=== PATIENT | female | born 1990 | race Two or more races ===

== ENCOUNTER → 2017-10-15 | Outpatient (CLI) | payer SELFPAY ==
--- NOTE | 2017-10-15 17:15 | RADIOLOGY REPORT (SQ) ---
EXAM DESCRIPTION: U/S OB 14+ TRNABD 1GES W/O DOP COMPLETED DATE/TIME: 10/15/2017 3:59 pm REASON FOR STUDY: ENCTR FOR SUPERVISION OF OTHER NORMAL , 3RD TRIMESTER (Z34.83) Z34.83 EN COUNTER FOR SUPRVSN OF NORMAL , THIRD TRIM COMPARISON: None. TECHNIQUE: Static and Dynamic grayscale imaging performed of gravid uterus using transabdominal appr oach. Additional selected color Doppler and spectral images recorded. All stored on PACS. LIMITATIONS: None. FINDINGS: EGA: 30 weks 0 days TOMASA: 12/24/2017 EFW: Not included on this exam PERCENTILE: Not included on this exam LORETTA: Not included on this exam PLACENTA: Anterior PRESENTATION: Cephalic. ANATOMY: HEART RATE: 162 beats per minute. FOUR CHAMBER HEART: Visualized. THREE VESSEL CORD: Yes. CORD INSERTION: Visualized. KIDNEYS AND BLADDER: The kidneys are visualized. Appear normal. The bladder is not visualiz ed STOMACH: Visualized. Appears normal. SPINE: Normal as visualized. BRAIN AND LATERAL VENTRICLES: Visualized. Appear normal. OTHER: No other significant finding. MATERNAL ADNEXA: Maternal ovaries not visualized. CERVICAL LENGTH: Not included. OTHER: No other significant finding. IMPRESSION: 1. LIVING INTRAUTERINE . 2. ESTIMATED GESTATIONAL AGE: 30 weeks 0 days. 3. Please see above for anatomy. Trimester of : Second/third trimester OB ultrasound TECHNICAL DOCUMENTATION: JOB ID: [id number] [employer]- All Rights Reserved
== END ==
LOC: RAD 14:06
PROVIDERS: ATTEND Nurse Practitioner Women's Health
DX: Z34.83 Encounter for supervision of other normal pregnancy, third trimester (principal)
CPT/HCPCS: 76805

== ENCOUNTER 2017-12-19 05:05 | Inpatient (IN) | payer MEDICAID ==
[2017-12-18 12:45] LABS: ABSOLUTE EOSINOPHILS # (AUTO) 0.1 10^3/uL (0.0-0.6); ABSOLUTE LYMPHOCYTES (AUTO) 1.6 10^3/uL (0.5-4.7); ABSOLUTE MONOCYTES (AUTO) 0.4 10^3/uL (0.1-1.4); ABSOLUTE NEUT (AUTO) 4.9 10^3/uL (1.7-8.2); BASOPHILS % (AUTO) 0.2 % (0-2); EOSINOPHILS % (AUTO) 1.5 % (0-6); HEMATOCRIT 33.5 % (36.0-47.0); HEMOGLOBIN 11.3 g/dL (12.0-15.5); LYMPHOCYTES % (AUTO) 22.9 % (13-45); MEAN CORPUSCULAR HEMOGLOBIN 29.6 pg (27.0-33.4); MEAN CORPUSCULAR HGB CONC 33.6 g/dL (32.0-36.0); MEAN CORPUSCULAR VOLUME 88 fl (80-97); MONOCYTES % (AUTO) 5.6 % (3-13); PLATELET COUNT 225 10^3/uL (150-450); RED CELL DISTRIBUTION WIDTH 13.8 % (11.5-14.0); SEGMENTED NEUTROPHILS % (AUTO) 69.8 % (42-78); TOTAL CELLS COUNTED % (AUTO) 100 %
[2017-12-18 12:53] LABS: APPEARANCE,URINE CLOUDY; BILIRUBIN,URINE NEGATIVE (NEGATIVE); COLOR,URINE YELLOW; GLUCOSE, URINE NEGATIVE (NEGATIVE); KETONES,URINE NEGATIVE (NEGATIVE); LEUKOCYTE ESTERASE,URINE MODERATE (NEGATIVE); NITRITE,URINE NEGATIVE (NEGATIVE); PROTEIN,URINE NEGATIVE (NEGATIVE); URINE SPECIFIC GRAVITY 1.024; UROBILINOGEN,URINE NEGATIVE mg/dL (<2.0)
[2017-12-18 13:15] LABS: URINE AMPHETAMINES SCREEN NEGATIVE; URINE BARBITURATES SCREEN NEGATIVE; URINE BENZODIAZEPINES SCREEN NEGATIVE; URINE COCAINE SCREEN NEGATIVE; URINE MARIJUANA (THC) SCREEN NEGATIVE; URINE METHADONE SCREEN NEGATIVE; URINE PHENCYCLIDINE SCREEN NEGATIVE
[~2017-12-19 05:05] MED LIST: CEFAZOLIN 1 GM/D5W RTU 1 GM/50 ML RTUPB IV PRN; LACTATED RINGERS 1000 ML IV PRN; LIDOCAINE 0.5% INJ-PF (5 MG/ML) 50 ML SDV SUBCUT PRN; RINGERS SOLUTION,LACTATED 1,000 ML IV PRN
[2017-12-19] MEDS ORDERED: MIDAZOLAM 2 MG/2 ML INJ ONE (07:25)
[2017-12-19] MEDS ORDERED: EPHEDRINE SULFATE INJ 50 MG/1 ML AMPULE ONE (07:25)
[2017-12-19] MEDS ORDERED: OXYTOCIN 10 UNIT/ML VIAL ONE (07:25)
[2017-12-19] MEDS ORDERED: ACETAMINOPHEN 100 ML IV ONE ×2 (07:26→09:19)
[2017-12-19] MEDS ORDERED: PROPOFOL INJ 200 MG/20 ML VIAL IV ONE (07:41)
[2017-12-19] MEDS ORDERED: TETRACAINE HCL/PF 20MG/2ML AMPULE (SPINAL) ONE (07:41)
[2017-12-19] MEDS ORDERED: OXYCODONE-ACETAMINOPHEN 5-325 MG TABLET PO PRN ×3 (08:08→10:00)
[2017-12-19] MEDS ORDERED: FENTANYL CITRATE INJ/PF 100 MCG/2 ML AMPUL IV PRN ×3 (08:08)
[2017-12-19] MEDS ORDERED: PROMETHAZINE HCL INJ 25 MG/1 ML VIAL IV PRN ×2 (08:08)
[2017-12-19] MEDS ORDERED: MEPERIDINE HCL/PF INJ 25 MG/1 ML DISP.SYRIN IV PRN (08:08)
[2017-12-19] MEDS ORDERED: DIPHENHYDRAMINE HCL 50 MG/ML VIAL IV PRN (08:08)
[2017-12-19] MEDS ORDERED: KETOROLAC TROMETHAMINE INJ/PF 30 MG/1 ML SDV ONE (09:31)
[2017-12-19] MEDS ORDERED: OXYTOCIN/NORMAL SALINE 20 UNIT/1,000 ML RTUINJ INJ PRN (09:38)
[2017-12-19] MEDS ORDERED: HYDROMORPHONE HCL INJ/PF 2 MG/ML AMPULE ONE (09:50)
[2017-12-19] MEDS ORDERED: HYDROMORPHONE HCL INJ/PF 2 MG/ML AMPULE IV PRN (10:00)
[2017-12-19] MEDS ORDERED: SIMETHICONE 80 MG TAB.CHEW PO PRN (10:00)
[2017-12-19] MEDS ORDERED: ACETAMINOPHEN 325 MG TABLET PO PRN (10:00)
[2017-12-19] MEDS ORDERED: DIPH/PERTUSS(ACELL)/TETANUS VAC/PF 0.5 ML SYR (>=10YO) IM PRN (10:00)
[2017-12-19] MEDS ORDERED: PROMETHAZINE HCL INJ 25 MG/1 ML VIAL IM PRN (10:00)
[2017-12-19] MEDS ORDERED: MEASLES,MUMPS&RUBELLA VACC/PF 0.5 ML VIAL SUBCUT PRN (10:00)
[2017-12-19] MEDS ORDERED: RINGERS SOLUTION,LACTATED 1,000 ML IV SCH (10:00)
--- NOTE | 2017-12-19 10:04 | PDOC PROGRESS REPORT ---
Subjective-OB Progress Note for:: 12/19/17 Subjective: pt bonding well with - no concerns ambulating well anxious to go home [id number] mild lochia precautions given d/c home rtc 4 weeks Physical Exam (OB) Vital Signs: Temp Pulse Resp BP Pulse Ox 98.3 F 90 16 122/90 H 99 12/19/17 05:48 12/19/17 05:48 12/19/17 05:48 12/19/17 05:48 12/19/17 05:48 Intake & Output 12/18/17 12/19/17 12/20/17 06:59 06:59 06:59 Weight 97.7 kg Objective-Diagnostic Laboratory: 12/18/17 12:11 12/18/17 12/18/17 12/18/17 12:05 12:11 12:11 WBC 7.0 RBC 3.80 Hgb 11.3 L Hct 33.5 L MCV 88 MCH 29.6 MCHC 33.6 RDW 13.8 Plt Count 225 Seg Neutrophils % 69.8 Lymphocytes % 22.9 Monocytes % 5.6 Eosinophils % 1.5 Basophils % 0.2 Absolute Neutrophils 4.9 Absolute Lymphocytes 1.6 Absolute Monocytes 0.4 Absolute Eosinophils 0.1 Absolute Basophils 0.0 Urine Color YELLOW Urine Appearance CLOUDY Urine pH 5.0 Ur Specific [place] 1.024 Urine Protein NEGATIVE Urine Glucose (UA) NEGATIVE Urine Ketones NEGATIVE Urine Blood SMALL H Urine Nitrite NEGATIVE Ur Leukocyte Esterase MODERATE H Urine WBC (Auto) 11 Urine RBC (Auto) 5 Blood Type A POSITIVE Antibody Screen NEGATIVE
--- NOTE | 2017-12-19 10:14 | PDOC DISCHARGE SUMMARY ---
Final Diagnosis Discharge Date: 12/19/17 - Final Diagnosis (1) Delivery by elective caesarean section Is this a current diagnosis for this admission?: Yes Discharge Data - Discharge Medication Prescriptions: Ibuprofen [Motrin 800 mg Tablet] 800 mg PO Q8 #90 tablet Home Medications: Ibuprofen [Motrin 800 mg Tablet] 800 mg PO Q8 #90 tablet 12/19/17 Reason(s) for Admission: Onset of Labor Intrapartum Procedure(s): Spontaneous Vaginal Delivery Laceration-Degree: 1st - Diagnosis Test Laboratory: Temp Pulse Resp BP Pulse Ox 98.3 F 90 16 122/90 H 99 12/19/17 05:48 12/19/17 05:48 12/19/17 05:48 12/19/17 05:48 12/19/17 05:48 12/18/17 12/18/17 12:05 12:11 RBC 3.80 Hgb 11.3 L Hct 33.5 L Urine Opiates Screen NEGATIVE - Discharge information/Instructions Discharge Activity: Activity As Tolerated Discharge Diet: Regular Disposition: HOME, SELF-CARE Follow up with: [facility] in: 4
[2017-12-19] MEDS ORDERED: ONDANSETRON HCL INJ/PF 4 MG/2 ML SDV ONE (10:51)
[2017-12-19] MEDS: PRENATAL VITAMIN W DHA CAPSULE PO SCH (13:12)
[2017-12-19] MEDS: DOCUSATE SODIUM 100 MG CAPSULE PO SCH ×2 (13:12→18:21)
[2017-12-19] MEDS: OXYCODONE-ACETAMINOPHEN 5-325 MG TABLET PO PRN ×2 (14:42→20:52)
[2017-12-19] MEDS: ACETAMINOPHEN 100 ML IV SCH (17:39)
[2017-12-19] MEDS: KETOROLAC TROMETHAMINE INJ/PF 30 MG/1 ML SDV IV SCH (18:22)
[2017-12-20] MEDS: ACETAMINOPHEN 100 ML IV SCH (02:26)
[2017-12-20] MEDS: KETOROLAC TROMETHAMINE INJ/PF 30 MG/1 ML SDV IV SCH ×2 (03:00→10:14)
[2017-12-20 06:52] LABS: HEMATOCRIT 27.7 % (36.0-47.0); HEMOGLOBIN 9.5 g/dL (12.0-15.5); RED BLOOD COUNT 3.11 10^6/uL (3.72-5.28); WHITE BLOOD COUNT 9.1 10^3/uL (4.0-10.5)
[2017-12-20 06:53] LABS: MEAN CORPUSCULAR HEMOGLOBIN 30.4 pg (27.0-33.4); MEAN CORPUSCULAR HGB CONC 34.3 g/dL (32.0-36.0); MEAN CORPUSCULAR VOLUME 89 fl (80-97); PLATELET COUNT 177 10^3/uL (150-450); RED CELL DISTRIBUTION WIDTH 14.2 % (11.5-14.0)
[2017-12-20] MEDS: DOCUSATE SODIUM 100 MG CAPSULE PO SCH ×2 (10:14→17:49)
[2017-12-20] MEDS: PRENATAL VITAMIN W DHA CAPSULE PO SCH (10:14)
[2017-12-20] MEDS: OXYCODONE-ACETAMINOPHEN 5-325 MG TABLET PO PRN ×2 (10:15→14:47)
--- NOTE | 2017-12-20 12:06 | PDOC PROGRESS REPORT ---
Subjective-OB Progress Note for:: 12/20/17 Subjective: Day 1 s/p r c/s with btl doing well, lochia stable, pain well controlled, voiding without difficulty, lochia is stable, tolerating diet, passing gas, ambulating well bonding with baby well. Physical Exam (OB) Vital Signs: Temp Pulse Resp BP Pulse Ox 98.3 F 95 16 121/76 100 12/20/17 07:43 12/20/17 07:43 12/20/17 07:43 12/20/17 07:43 12/20/17 07:43 Intake & Output 12/19/17 12/20/17 12/21/17 06:59 06:59 06:59 Intake Total 850 Output Total 1100 Balance -250 Weight 97.7 kg - PIH/Pre-Eclampsia DTR's: 1 + Clonus: Negative Headache: Absent Epigastric Pain: No Visual Changes: No - Dressing Removed: No - opsite Incision: Dressing Closure Type: Op Site - Lochia Lochia Amount: Small 10-25 ml Lochia Color: Rubra/Red - Abdomen Description: Soft, Round Hernia Present: No Fundal Description: Firm, Midline Fundal Height: u/u - u/2 Objective-Diagnostic Laboratory: 12/20/17 06:32 12/20/17 06:32 WBC 9.1 RBC 3.11 L Hgb 9.5 L Hct 27.7 L MCV 89 MCH 30.4 MCHC 34.3 RDW 14.2 H Plt Count 177 Assessment and Plan(PN) - Assessment and Plan (1) Anemia due to acute blood loss Is this a current diagnosis for this admission?: Yes Plan: ferrous sulfate increase dietary iron (2) Delivery by elective caesarean section Is this a current diagnosis for this admission?: Yes Plan: routine pp care. - Time Spent with Patient Time with patient: Less than 15 minutes Critical Time spent with patient: Less than 15 minutes Medications reviewed and adjusted accordingly: Yes - Disposition Anticipated Discharge: Home Within: within 24 hours
[2017-12-20] MEDS: IBUPROFEN 800 MG TABLET PO SCH ×2 (14:46→21:51)
[2017-12-21] MEDS: IBUPROFEN 800 MG TABLET PO SCH ×2 (05:24→11:24)
--- NOTE | 2017-12-21 09:14 | PDOC PROGRESS REPORT ---
Subjective-OB Progress Note for:: 12/21/17 Subjective: Doing well, ready to go home, pain under control, breast/bottle feeding, voiding , ambulating, passing gas Physical Exam (OB) Vital Signs: Temp Pulse Resp BP Pulse Ox 98.6 F 95 16 122/59 L 99 12/21/17 07:52 12/21/17 07:52 12/21/17 07:52 12/21/17 07:52 12/21/17 07:52 Intake & Output 12/20/17 12/21/17 12/22/17 06:59 06:59 06:59 Intake Total 850 800 Output Total 1100 Balance -250 800 - PIH/Pre-Eclampsia DTR's: 1 + Clonus: Negative Headache: Absent Epigastric Pain: No Visual Changes: No - Dressing Removed: Yes - replaced Incision: Dressing Closure Type: Sutures - Lochia Lochia Amount: Scant < 10 ml Lochia Color: Rubra/Red - Abdomen Description: Tender, Soft, Round Hernia Present: No Fundal Description: Firm, Midline Fundal Height: u/u - u/2 Objective-Diagnostic Laboratory: 12/20/17 06:32 Assessment and Plan(PN) - Assessment and Plan (1) Delivery by elective caesarean section Is this a current diagnosis for this admission?: Yes (2) Anemia due to acute blood loss Is this a current diagnosis for this admission?: Yes - Time Spent with Patient Time with patient: Less than 15 minutes Medications reviewed and adjusted accordingly: Yes - Disposition Anticipated Discharge: Home Within: Other - home today
--- NOTE | 2017-12-21 09:20 | PDOC DISCHARGE SUMMARY ---
Final Diagnosis Discharge Date: 12/21/17 - Final Diagnosis (1) Delivery by elective caesarean section Is this a current diagnosis for this admission?: Yes (2) Anemia due to acute blood loss Is this a current diagnosis for this admission?: Yes Discharge Data - Discharge Medication Prescriptions: Oxycodone HCl/Acetaminophen [Percocet 5-325 mg Tablet] 1 tab PO Q4HP PRN #30 tablet PRN Reason: Ibuprofen [Motrin 800 mg Tablet] 800 mg PO Q8 #90 tablet Home Medications: Ibuprofen [Motrin 800 mg Tablet] 800 mg PO Q8 #90 tablet 12/19/17 Oxycodone HCl/Acetaminophen [Percocet 5-325 mg Tablet] 1 tab PO Q4HP PRN #30 tablet 12/21/17 Gestational Age: 39 Reason(s) for Admission: Ceasarean Section-Repeat Procedures: NST, Ultrasound Intrapartum Procedure(s): : Low Cervical, Transverse, Tubal Ligation - Diagnosis Test Laboratory: Temp Pulse Resp BP Pulse Ox 98.6 F 95 16 122/59 L 99 12/21/17 07:52 12/21/17 07:52 12/21/17 07:52 12/21/17 07:52 12/21/17 07:52 12/18/17 12/18/17 12/20/17 12:05 12:11 06:32 RBC 3.80 3.11 L Hgb 11.3 L 9.5 L Hct 33.5 L 27.7 L Urine Opiates Screen NEGATIVE - Discharge information/Instructions Discharge Activity: Activity As Tolerated, No Lifting Over 10 Pounds, No Lifting /Push/Pulling, Pelvic Rest Discharge Diet: As Tolerated, Regular Disposition: HOME, SELF-CARE Follow up with: [facility] in: 1, 4, Weeks - to clinic in 1 week
[2017-12-21] MEDS: PRENATAL VITAMIN W DHA CAPSULE PO SCH (11:25)
[2017-12-21] MEDS: DOCUSATE SODIUM 100 MG CAPSULE PO SCH (11:25)
[2017-12-21 12:16] VITALS: BP 127/71
--- NOTE | 2018-01-15 14:21 | PDOC DELIVERY SUMMARY ---
Delivery Summary - Maternal Hx : III Hx # Term Pregnancies: 2 TOMASA: 12/25/17 Gestational Age: 39 Ruptured Membranes: AROM Time of Rupture: 08:13 Fluids: Clear - Delivery Presentation: Vertex Heart Rate Monitoring: Done Pre-Operatively Support Person Present: Yes - LISA() Location: LD : Repeat Placenta: Within Normal Limits Delivery of Placenta Date: 12/19/17 Delivery of Placenta Time: 08:14 - Medications Type of Anesthesia:: Spinal - Infant Assess and Care Baby 1 Male Delivery of Infant Date: 12/19/17 Delivery of Infant Time: 08:13 at 1 minute: 9 at 5 minutes: 9 Preprinted Number On Band: [id number] Infant Skin to Skin: No To Nursery At: 08:19 Mode of Transport: Bassinet Delivery Weight: 3,115 Infant Delivery Length: 19.5 in - Delivery Personnel Mechanical Shovel Operator: RAMILA LORENZ RN: UGO BATEMAN RN: ANGEL RAHMAN MD: JAYANT ZURITA
--- NOTE | 2018-01-15 14:59 | OPERATIVE REPORT E ---
Operative Report NAME: CANDIE TAYLOR : 1990 AGE: 27Y DATE OF SURGERY: 12/19/2017 ROOM: 222 PREOPERATIVE DIAGNOSES: 1. IUP at 39 weeks and 0 days. 2. Previous . 3. Undesired fertility. POSTOPERATIVE DIAGNOSES: 1. IUP at 39 weeks and 0 days. 2. Previous . 3. Undesired fertility. OPERATION: Low transverse hysterotomy section, repeat with a Amonate tubal ligation. SURGEON: JAYANT ZURITA M.D. ANESTHESIA: Dr. Woods with a spinal. ESTIMATED BLOOD LOSS: 600 mL TISSUE REMOVED OR ALTERED: Bilateral fallopian tubes. PROCEDURE IN DETAIL: Patient was taken to the operating room, prepared and draped in a normal sterile fashion in a supine position with a leftward tilt. A transverse skin incision was made following the patient's previous scar with a scalpel and this was carried through to the underlying layer of fascia with the same scalpel. The fascia was excised in the midline and extended laterally with Sukhwinder's. The fascia was dissected from the rectus muscles sharply with Sukhwinder's and the rectus muscle was divided. The peritoneal cavity was entered bluntly with surgeon finger fracture. The bladder blade was inserted with good visualization of the bladder and the uterus, and the hysterotomy was nicked with a scalpel and extended laterally with surgeon finger fracture. The infant was then delivered atraumatically. The nose and mouth were suctioned with a suction bulb, the cord was clamped and cut, and the infant was handed off to the awaiting sap senior developer. Cord blood was collected and the placenta was removed manually. The uterus was exteriorized and cleared of clots and debris. The hysterotomy was closed with 0 Monocryl in a running, locked fashion. A second layer of the same suture was used to imbricate to ensure hemostasis. Attention was then turned to the fallopian tubes were a [place] was placed on both the fallopian tubes and the mesosalpinx was divided using the Bovie. A large 3 cm section of the fallopian tube was then tied off with 2 pieces of 2-0 chromic on both sides. The intermediate section was then ligated with Metzenbaum's and the pedicles were made hemostatic with the Bovie. The pedicles were reinspected and found to be hemostatic, and the uterus was returned to the abdomen. Each pedicle was also reinspected at this time. The peritoneal cavity was cleared of clots and debris. The peritoneum and the rectus muscles were reapproximated with a mattress stitch of 2-0 chromic, the fascia was closed with 0 Vicryl, the subcutaneous layer was closed with plain catgut, and the skin was closed with 4-0 Vicryl. The patient tolerated the procedure well. Sponge, lap, and needle counts were correct x2. The patient was taken to recovery in stable condition. DICTATING PHYSICIAN: JAYANT ZURITA M.D. [id number] PHY#: [id number] ID: [id number] JOB#: [id number] ACCT: [id number] cc:JAYANT ZURITA M.D. >
== END 2017-12-21 12:45 | disposition home or self-care (01) | DRG 765 ==
LOC: 2S 05:05
PROVIDERS: ADMIT Obstetrics & Gynecology; ATTEND Obstetrics & Gynecology
PROC: 0UB70ZZ Excision of Bilateral Fallopian Tubes, Open Approach (ICD-10-PCS; 2017-12-19)
PROC: 4A1HXCZ Monitoring of Products of Conception, Cardiac Rate, External Approach (ICD-10-PCS; 2017-12-19)
PROC: 10D00Z1 Extraction of Products of Conception, Low, Open Approach (ICD-10-PCS; principal; 2017-12-19 07:45)
DX: O34.211 Maternal care for low transverse scar from previous cesarean delivery (principal); D62 Acute posthemorrhagic anemia; Z30.2 Encounter for sterilization; O99.02 Anemia complicating childbirth; Z3A.39 39 weeks gestation of pregnancy; Z37.0 Single live birth
CPT/HCPCS: 1961; 36415; 59025; 80307; 81001; 85025; 85027; 86850; 86900; 86901; 88302; 94799; J0131; J1170; J1885; J2250; J2405; J2590; J2704; J3490